=== PATIENT | female | born 1975 | race African-American/Black ===

== ENCOUNTER 2019-09-18 17:42 | Emergency (ER) | payer MEDICARE ==
--- NOTE | 2019-09-18 18:44 | ER Document Report ---
ED GI/ - General Chief Complaint: Vaginal Pain Stated Complaint: FEVER Time Seen by Provider: 09/18/19 18:07 Mode of Arrival: Ambulatory Information source: Patient Notes: 43-year-old female patient presenting to the emergency department with complaints of vaginal pain that started this morning. Patient reports it feels like a sharp stabbing pain into her vagina more so on the left side. She denies any urinary urgency, frequency, retention or dysuria. Patient denies any abnormal discharge. She denies ever having history of this. She does state that she has been told in the past that she had uterine fibroids and ovarian cysts. Patient denies any fever, nausea, vomiting or diarrhea. - Related Data Home Medications: ferrous sulfate Past Medical History - General Information source: Patient - Social History Smoking Status: Never Smoker Family History: Reviewed & Not Pertinent Patient has homicidal ideation: No - Past Medical History Cardiac Medical History: Reports: Hx Hypertension Past Surgical History: Reports: Hx Section - Immunizations Immunizations up to date: Yes Review of Systems - Review of Systems Female Genitourinary: See HPI -: Yes All other systems reviewed and negative Physical Exam - Vital signs Vitals: Temp Pulse Resp BP Pulse Ox 99.1 F 98 16 149/91 H 100 09/18/19 17:46 09/18/19 17:46 09/18/19 17:46 09/18/19 17:46 09/18/19 17:46 - Notes Notes: PHYSICAL EXAMINATION: GENERAL: Well-appearing, well-nourished and in no acute distress. HEAD: Atraumatic, normocephalic. EYES: Pupils equal round and reactive to light, extraocular movements intact, conjunctiva are normal. ENT: Nares patent, oropharynx clear without exudates. Moist mucous membranes. NECK: Normal range of motion, supple without lymphadenopathy LUNGS: Breath sounds clear to auscultation bilaterally and equal. No wheezes rales or rhonchi. HEART: Regular rate and rhythm without murmurs ABDOMEN: Soft, nontender, nondistended abdomen. No guarding, no rebound. No masses appreciated. Female : Normal external genitalia. Thin white vaginal discharge noted from the cervix. No cervical motion tenderness or adnexal tenderness. Nonfriable cervix. Musculoskeletal: Normal range of motion, no pitting or edema. No cyanosis. NEUROLOGICAL: Cranial nerves grossly intact. Normal speech, normal gait. Normal sensory, motor exams PSYCH: Normal mood, normal affect. SKIN: Warm, Dry, normal turgor, no rashes or lesions noted. Course - Re-evaluation Re-evalutation: Laboratory 09/18/19 09/18/19 18:45 18:45 Urine Color YELLOW Urine Appearance SLIGHTLY-CLOUDY Urine pH 6.0 Ur Specific Ringle 1.027 Urine Protein NEGATIVE Urine Glucose (UA) NEGATIVE Urine Ketones NEGATIVE Urine Blood NEGATIVE Urine Nitrite NEGATIVE Urine Bilirubin NEGATIVE Urine Urobilinogen 2.0 H Ur Leukocyte Esterase NEGATIVE Urine WBC (Auto) 1 Urine RBC (Auto) 1 U Hyaline Cast (Auto) 1 Squamous Epi Cells Auto 10 Urine Mucus (Auto) MANY Urine Ascorbic Acid 40 H Urine HCG, Qual NEGATIVE Epi Cells (Wet Prep) 3+ EPITHELIALS SEEN Bacteria (Wet Prep) 4+ BACTERIA SEEN Trichomonas (Wet Prep) NO TRICHOMONAS SEEN Vaginal WBC 1+ WBCS SEEN Vaginal Yeast NO YEAST SEEN Transvaginal US 09/18/19 18:43 IMPRESSION: No acute process noted Patient with 4+ bacteria on wet prep. Will start patient on Flagyl for bacterial vaginosis. The rest of patient's work-up today has been unremarkable. - Vital Signs Vital signs: Temp Pulse Resp BP Pulse Ox 98.2 F 62 16 140/84 H 98 09/18/19 20:50 09/18/19 20:50 09/18/19 20:50 09/18/19 20:50 09/18/19 20:50 - Laboratory Laboratory results interpreted by me: 09/18/19 18:45 Urine Urobilinogen 2.0 H Urine Ascorbic Acid 40 H Discharge - Discharge Clinical Impression: Bacterial vaginosis Condition: Stable Disposition: HOME, SELF-CARE Additional Instructions: You have an overgrowth of natural vaginal bacteria, called bacterial vaginosis. You are being treated with an antibiotic called metronidazole. Do not drink alcohol while taking this medication. Complete all of the antibiotic even if your symptoms have resolved. Return for abdominal pain, vomiting, fever of greater than 101F, or any other symptoms that are worrisome to you. Please follow-up with your SERVICE OPERATOR or primary care doctor as needed. Prescriptions: Ibuprofen [Motrin 600 mg Tablet] 600 mg PO Q8HP PRN #30 tablet PRN Reason: Metronidazole [Flagyl 500 mg Tablet] 500 mg PO BID #14 tablet
[2019-09-18 18:57] LABS: BACTERIA (WET MOUNT) 4+ BACTERIA SEEN; EPITHELIALS (WET MOUNT) 3+ EPITHELIALS SEEN; T.VAGINALIS (WET MOUNT) NO TRICHOMONAS SEEN; WBCS (WET MOUNT) 1+ WBCS SEEN; YEAST (WET MOUNT) NO YEAST SEEN
[2019-09-18 19:04] LABS: APPEARANCE,URINE SLIGHTLY-CLOUDY; BILIRUBIN,URINE NEGATIVE (NEGATIVE); COLOR,URINE YELLOW; GLUCOSE, URINE NEGATIVE (NEGATIVE); KETONES,URINE NEGATIVE (NEGATIVE); LEUKOCYTE ESTERASE,URINE NEGATIVE (NEGATIVE); NITRITE,URINE NEGATIVE (NEGATIVE); PROTEIN,URINE NEGATIVE (NEGATIVE); URINE SPECIFIC GRAVITY 1.027
--- NOTE | 2019-09-18 20:21 | RADIOLOGY REPORT (SQ) ---
EXAM DESCRIPTION: CLINICAL HISTORY: 43 years Female pelvic pain, L side COMPARISON: None. TECHNIQUE: Transabdominal and transvaginal duplex imaging performed to evaluate the pelvis. FINDINGS: Uterus measures 6.1 x 4.9 cm. Small amount of fluid is present in the endocervical canal. Cervix measures 3.2 cm. Endometrium measures 1.5 cm. Both ovaries appear normal in size with normal blood flow. Small right ovarian follicle measuring 1.2 x 1.3 cm. This is almost early benign and no follow-up is recommended. IMPRESSION: No acute process noted
[2019-09-18] MEDS ORDERED: METRONIDAZOLE 500 MG TABLET PO ONE (20:24)
[2019-09-18 20:29] LABS: CHLAM PCR NOT DETECTED (NOT DETECT)
[2019-09-18 20:52] VITALS: BP 140/84
== END 2019-09-18 21:07 | disposition home or self-care (01) ==
LOC: ER 17:42
DX: N76.0 Acute vaginitis (principal); B96.89 Other specified bacterial agents as the cause of diseases classified elsewhere; R10.2 Pelvic and perineal pain; I10 Essential (primary) hypertension; Z87.42 Personal history of other diseases of the female genital tract
CPT/HCPCS: 76830; 81001; 81025; 87210; 87491; 87591; 93976; 99284